=== PATIENT | female | born 1975 | race Caucasian/White ===

== ENCOUNTER 2018-04-04 23:36 | Emergency (ER) | payer OTHER ==
[~2018-04-04] VITALS: Ht 165.1 cm; Wt 59.0 kg
[~2018-04-04 23:36] MED LIST: ALPR0.254 PO; DEXT20CA7 PO; DEXT5TAB27 PO; IBUP800T19 PO; VENL75CA6 PO
[2018-04-04] MEDS ORDERED: IV NORMAL SALINE 1,000ML 1,000 ML IV SCH (23:55)
--- NOTE | 2018-04-05 00:07 | PHYS DOC ---
Past History Past Medical History: Anxiety, Depression, Other Past Surgical History: Other Alcohol Use: None Drug Use: None Adult General Chief Complaint Chief Complaint: HEADACHE HPI HPI Patient is a 42 year old female who presents with complaint of migraine headache. She states that her headache has been present over the past 6-7 hours. Patient states she has history of migraine headaches. Patient states that her headache is bitemporal and states she has associated nausea and photophobia. Patient rates her headache currently is 9 out of 10. Patient states her symptoms are typical from previous headaches but states that she has not had a headache that has lead her to come to the emergency department in several months. Patient states that she has been treated in the emergency department in the past with IV fluids, Benadryl, and an additional medicine but is not sure the name of that medication. Patient denies any associated fevers. Patient has history of partial hysterectomy. Review of Systems Review of Systems Constitutional: Denies fever or chills [] Eyes: Photophobia, denies change in visual acuity, redness, or eye pain [] HENT: Denies nasal congestion or sore throat [] Respiratory: Denies cough or shortness of breath [] Cardiovascular: Denies chest pain or edema[] GI: Nausea, denies abdominal pain, vomiting, bloody stools or diarrhea [] : Denies dysuria or hematuria [] Musculoskeletal: Denies back pain or joint pain [] Integument: Denies rash or skin lesions [] Neurologic: Headache, denies focal weakness or sensory changes [] All other systems were reviewed and found to be within normal limits, except as documented in this note. Current Medications Current Medications Current Medications Medications (Trade) Dose Ordered Sig/Rob Start Time Stop Time Status Last Admin Dose Admin Diphenhydramine HCl (Benadryl) 25 mg 1X ONCE 04/05/18 00:00 04/05/18 00:01 UNV Prochlorperazine Edisylate (Compazine) 10 mg 1X ONCE 04/05/18 00:00 04/05/18 00:01 UNV Sodium Chloride 1,000 ml @ 1,000 mls/hr Q1H 04/04/18 23:55 04/05/18 00:54 UNV Allergies Allergies Allergies Coded Allergies Type Severity Reaction Last Updated Verified Sulfa (Sulfonamide Antibiotics) Allergy Intermediate 12/22/16 Yes codeine Allergy Intermediate 12/22/16 Yes Physical Exam Physical Exam Constitutional: Alert, afebrile, appears in moderate discomfort. [] HENT: Normocephalic, atraumatic, bilateral external ears normal, oropharynx moist, no oral exudates, nose normal. [] Eyes: PERRLA, EOMI, photophobia present, conjunctiva normal, no discharge. [] Neck: Normal range of motion, no tenderness, supple, no stridor. [] Cardiovascular:Heart rate regular rhythm, no murmur [] Lungs & Thorax: Bilateral breath sounds clear to auscultation [] Abdomen: Bowel sounds normal, soft, no tenderness, no masses, no pulsatile masses. [] Skin: Warm, dry, no erythema, no rash. [] Back: No tenderness, no CVA tenderness. [] Extremities: No tenderness, no cyanosis, no clubbing, ROM intact, no edema. [] Neurologic: Alert and oriented X 3, normal motor function, normal sensory function, no focal deficits noted. [] Current Patient Data Lab Results Not performed EKG EKG Not performed[] Radiology/Procedures Radiology/Procedures Not performed[] Course & Med Decision Making Course & Med Decision Making Pertinent Labs and Imaging studies reviewed. (See chart for details) Patient was treated with IV fluids, Toradol, Compazine, and Benadryl. On reevaluation, patient states that her symptoms have significantly improved and she is feeling better at this time. Patient discharged with prescription for Fioricet. Advised follow-up with primary doctor in the next 3-4 days for reevaluation and return to the emergency department for any worsening symptoms. Patient was understanding and agreement with treatment plan. Dragon Disclaimer Dragon Disclaimer This electronic medical record was generated, in whole or in part, using a voice recognition dictation system. Departure Departure: Impression: Primary Impression: Migraine headache Disposition: 01 HOME, SELF-CARE Condition: IMPROVED Referrals: DANIKA APPIAH MD (PCP) Patient Instructions: Migraine Headache Additional Instructions: Follow-up with her primary doctor in the next 3-4 days for reevaluation. Return to the emergency department for any worsening symptoms. Scripts Butalb/Acetaminophen/Caffeine ([id number] 50-325-40) 1 Each Tablet 1-2 EACH PO Q4-6HRS PRN for HEADACHE, #30 TAB Prov: YEN BAEZ MD 04/05/18 Problem Qualifiers Primary Impression: Migraine headache Migraine type: without aura Status migrainosus presence: without status migrainosus Intractability: not intractable Qualified Codes: G43.009 - Migraine without aura, not intractable, without status migrainosus YEN BAEZ MD Apr 05, 2018 00:07
[2018-04-05] MEDS ORDERED: PROCHLORPERAZINE 10 MG/2 ML VIAL. IV ONE (00:15)
[2018-04-05] MEDS ORDERED: diphenhydrAMINE 50 MG/ML VIAL IVP ONE (00:15)
[2018-04-05] MEDS ORDERED: KETOROLAC 30 MG/ML VIAL. IV ONE (01:00)
[2018-04-05] MEDS ORDERED: BUTA1TAB23 PO (01:07)
[2018-04-05 01:12] VITALS: BP 119/66
== END 2018-04-05 01:12 | disposition home or self-care (01) ==
LOC: ER 23:36
DX: G43.009 Migraine without aura, not intractable, without status migrainosus (principal); F41.9 Anxiety disorder, unspecified; F32.9 Major depressive disorder, single episode, unspecified; Z88.2 Allergy status to sulfonamides; Z88.5 Allergy status to narcotic agent
CPT/HCPCS: 96374; 96375; 99284; J0780; J1200; J1885; J7030

== ENCOUNTER 2019-05-08 03:57 | Inpatient (IN) | payer OTHER ==
[~2019-05-08] VITALS: Ht 167.6 cm; Wt 62.9 kg
[~2019-05-08 03:57] MED LIST changes: +BUTA1TAB23 PO
--- NOTE | 2019-05-08 04:43 | PHYS DOC ---
Past History Past Medical History: Anxiety, Migraines, Other (ALEJANDRO BAER DO) Past Surgical History: Cholecystectomy, Other (ALEJANDRO BAER DO) Alcohol Use: Occasionally Drug Use: None (ALEJANDRO BAER DO) Adult General Chief Complaint Chief Complaint: ABDOMINAL PAIN HPI HPI 43-year-old female presents with right lower quadrant abdominal pain. She states that the pain began around 5 PM last night. They have been at the [facility] most of the day. She denies any trauma or falls. As her getting ready to leave, the patient began to have pain in the right lower quadrant. It intensified over the next few hours. She has not really been able to sleep. The pain is now 8 out of 10. She describes it as a sharp cramping. She does not know if she has a fever. She has had chills. Movement and bouncing makes the pain worse. If she lies still it subsides a little bit. Patient has had a partial hysterectomy and cholecystectomy. She still has her appendix. (ALEJANDRO BAER DO) Review of Systems Review of Systems Constitutional: Denies fever or chills [] Eyes: Denies change in visual acuity, redness, or eye pain [] HENT: Denies nasal congestion or sore throat [] Respiratory: Denies cough or shortness of breath [] Cardiovascular: No additional information not addressed in HPI [] GI: Right lower quadrant abdominal pain, nausea. Denies vomiting, bloody stools or diarrhea [] : Denies dysuria or hematuria [] Musculoskeletal: Denies back pain or joint pain [] Integument: Denies rash or skin lesions [] Neurologic: Denies headache, focal weakness or sensory changes [] Endocrine: Denies polyuria or polydipsia [] All other systems were reviewed and found to be within normal limits, except as documented in this note. (ALEJANDRO BAER DO) Current Medications Current Medications Current Medications Medications (Trade) Dose Ordered Sig/Rob Start Time Stop Time Status Last Admin Dose Admin Morphine Sulfate (Morphine 2mg Syringe) 2 mg 1X ONCE 05/08/19 05:00 05/08/19 05:01 Ondansetron HCl (Zofran) 4 mg 1X ONCE 05/08/19 05:00 05/08/19 05:01 Sodium Chloride 1,000 ml @ 1,000 mls/hr 1X ONCE 05/08/19 05:00 05/08/19 05:59 (ALEJANDRO BAER DO) Allergies Allergies Allergies Coded Allergies Type Severity Reaction Last Updated Verified Sulfa (Sulfonamide Antibiotics) Allergy Intermediate 12/22/16 Yes codeine Allergy Intermediate 12/22/16 Yes (ALEJANDRO BAER DO) Physical Exam Physical Exam Constitutional: Well developed, well nourished, no acute distress, non-toxic appearance. [] HENT: Normocephalic, atraumatic, bilateral external ears normal, oropharynx moist, no oral exudates, nose normal. [] Eyes: PERRLA, EOMI, conjunctiva normal, no discharge. [] Neck: Normal range of motion, no tenderness, supple, no stridor. [] Cardiovascular:Heart rate regular rhythm, no murmur [] Lungs & Thorax: Bilateral breath sounds clear to auscultation [] Abdomen: Bowel sounds normal, soft, lateral, right sided abdominal pain, no masses, no pulsatile masses. [] Skin: Warm, dry, no erythema, no rash. [] Back: No tenderness, right CVA tenderness. [] Extremities: No tenderness, no cyanosis, no clubbing, ROM intact, no edema. [] Neurologic: Alert and oriented X 3, normal motor function, normal sensory function, no focal deficits noted. [] Psychologic: Affect normal, judgement normal, mood normal. [] (ALEJANDRO BAER DO) EKG EKG [] (ALEJANDRO BAER DO) Radiology/Procedures Radiology/Procedures [] (ALEJANDRO BAER DO) Radiology/[place] [address] IMAGING REPORT Signed PATIENT: REGGIE YUSUF ACCOUNT: [id number] : 1975 LOCATION: ER AGE: 43 SEX: F EXAM STATUS: REG ER ORD. PHYSICIAN: ALEJANDRO BAER DO REASON: Severe right flank pain. Hx: Cholecystectomy PROCEDURE: CT ABDOMEN PELVIS WO CONTRAST INDICATION: Right flank pain COMPARISON: None. TECHNIQUE: Axial CT images obtained through the abdomen and pelvis without contrast. Limited assessment of solid organ structures and vasculature secondary to lack of intravenous contrast.. One or more of the following individualized dose reduction techniques were utilized for this examination: 1. Automated exposure control; 2. Adjustment of the mA and/or kV according to patient size; 3. Use of iterative reconstruction technique. FINDINGS: Cystic changes at lung bases. Abdominal aorta is not aneurysmal. Suspected fat-containing inguinal hernias. Scattered prominent lymph nodes within the groin. No intrahepatic bile duct dilation. The liver is enlarged with postcholecystectomy changes. Poor evaluation of pancreas without contrast. Spleen mildly prominent. Nonobstructive left renal stones. No left-sided hydronephrosis. Urinary bladder partially distended. Mild prominence of the right extrarenal pelvis. Definite radiopaque obstructive ureter stone is not seen. Difficult to follow the ureter through a portion of the pelvis secondary to lack of adjacent fat. Colonic diverticulosis. The appendix is partially visualized without definite adjacent inflammatory changes. Moderate stool in the proximal colon. Left-sided colon is not very distended with wall appearing prominent. Scattered prominent loops of small bowel identified with fluid within. No high-grade transition point to suggest obstruction. The bowel within the left-sided the abdomen has a mildly prominent wall. Degenerative changes the spine including multiple disc protrusions with one of the largest 1's at L3-4. IMPRESSION: 1. Mild prominence of the right extrarenal pelvis with some prominence of the urothelium. Would correlate with symptoms in the region to ensure that there is not a pathologic cause such as pyelitis or recently passed ureter stone. 2. Questionable region of wall thickening at left side of the colon as well as loop of small bowel at left side of the abdomen. These are questionable findings and can be from lack of distention but would correlate with symptoms to ensure that there is not an enteritis or colitis. 3. Nonobstructive left renal stones. Electronically signed by: Black Dalton MD (05/08/2019 6:01 AM) [facility] DICTATED AND SIGNED BY: BLACK DALTON MD DATE: 05/08/19 0601 CC: ALEJANDRO BAER DO; EMELY DENNY (YEN REZA MD) Course & Med Decision Making Course & Med Decision Making Pertinent Labs and Imaging studies reviewed. (See chart for details) The patient has a slightly elevated white count. Her urinalysis is significant for urinary tract infection. I will treat her with 1 g of Rocephin. The rest of her workup is still pending. I'm signing the patient out to Dr. Reza at 0600 and he will determine the patient's final disposition and treatment plan. [] (ALEJANDRO BAER DO) Course & Med Decision Making Serum care of patient at [address] Baer. Receive results of CT scan. Appears patient has findings concerning for acute pyelonephritis. Given the urine results this would be consistent. Patient continues to have severe right- sided pain and states that she is unable to move and her current condition because of her pain. Given severity of symptoms and the presence of acute pyelonephritis, it is appropriate for admission for further treatment and pain control. Spoke with Dr. Mckinney who accepted care of patient in hospital. (YEN REZA MD) Dragon Disclaimer Dragon Disclaimer This electronic medical record was generated, in whole or in part, using a voice recognition dictation system. (ALEJANDRO BAER DO) Departure Departure: Impression: Primary Impression: Acute pyelonephritis Additional Impression: Intractable pain Disposition: ADMITTED INPATIENT Admitting Physician: Garrison Mckinney (YEN REZA MD) Condition: GUARDED Referrals: DANIKA APPIAH MD (PCP) Problem Qualifiers ALEJANDRO BAER DO May 08, 2019 04:43 YEN REZA MD May 08, 2019 06:26
[2019-05-08] MEDS ORDERED: IV NORMAL SALINE 1,000ML 1,000 ML IV ONE (05:00)
[2019-05-08] MEDS ORDERED: MORPHINE SULFATE 2 MG/ML DISP.SYRIN. IV ONE (05:00)
[2019-05-08] MEDS ORDERED: ONDANSETRON PF 4 MG/2 ML VIAL. IV ONE (05:00)
[2019-05-08 05:08] LABS: BACTERIA,URINE MANY /HPF (0-FEW); BILIRUBIN,URINE NEG (NEG); CLARITY,URINE CLOUDY; COLOR,URINE YELLOW; GLUCOSE,URINE NEG (NEG); NITRITE,URINE POS (NEG); RBC,URINE >40 /HPF (0-2); SQUAMOUS EPITHELIAL CELL,UR FEW /LPF; UROBILINOGEN,URINE 0.2 mg/dL (0.2 mg/dL); WBC,URINE >40 /HPF (0-4)
[2019-05-08 05:44] LABS: BASO # 0.1 x10^3/uL (0.0-0.2); BASO % 1 % (0-3); EOS # 0.1 x10^3/uL (0.0-0.7); EOS % 1 % (0-3); HEMOGLOBIN 14.9 g/dL (12.0-15.5); LYMPH # 1.3 x10^3/uL (1.0-4.8); LYMPH % 10 % (24-48); MEAN CORPUSCULAR HEMOGLOBIN 32 pg (25-35); MEAN CORPUSCULAR HGB CONC 34 g/dL (31-37); MEAN CORPUSCULAR VOLUME 94 fL (79-100); MONO # 0.8 x10^3/uL (0.0-1.1); MONO % 6 % (0-9); NEUT % 83 % (31-73); PLATELET COUNT 167 x10^3/uL (140-400); RED BLOOD COUNT 4.68 x10^6/uL (3.50-5.40); RED CELL DISTRIBUTION WIDTH 13.7 % (11.5-14.5); WHITE BLOOD COUNT 13.2 x10^3/uL (4.0-11.0)
[2019-05-08 05:55] LABS: ALBUMIN/GLOBULIN RATIO 1.2 (1.0-1.7); CALCIUM 9.5 mg/dL (8.5-10.1); CREATININE 0.8 mg/dL (0.6-1.0); GFR 77.9; POTASSIUM 3.9 mmol/L (3.5-5.1); TOTAL BILIRUBIN 0.2 mg/dL (0.2-1.0); TOTAL PROTEIN 7.4 g/dL (6.4-8.2)
--- NOTE | 2019-05-08 06:04 | RAD ---
INDICATION: Right flank pain COMPARISON: None. TECHNIQUE: Axial CT images obtained through the abdomen and pelvis without contrast. Limited assessment of solid organ structures and vasculature secondary to lack of intravenous contrast.. One or more of the following individualized dose reduction techniques were utilized for this examination: 1. Automated exposure control; 2. Adjustment of the mA and/or kV according to patient size; 3. Use of iterative reconstruction technique. FINDINGS: Cystic changes at lung bases. Abdominal aorta is not aneurysmal. Suspected fat-containing inguinal hernias. Scattered prominent lymph nodes within the groin. No intrahepatic bile duct dilation. The liver is enlarged with postcholecystectomy changes. Poor evaluation of pancreas without contrast. Spleen mildly prominent. Nonobstructive left renal stones. No left-sided hydronephrosis. Urinary bladder partially distended. Mild prominence of the right extrarenal pelvis. Definite radiopaque obstructive ureter stone is not seen. Difficult to follow the ureter through a portion of the pelvis secondary to lack of adjacent fat. Colonic diverticulosis. The appendix is partially visualized without definite adjacent inflammatory changes. Moderate stool in the proximal colon. Left-sided colon is not very distended with wall appearing prominent. Scattered prominent loops of small bowel identified with fluid within. No high-grade transition point to suggest obstruction. The bowel within the left-sided the abdomen has a mildly prominent wall. Degenerative changes the spine including multiple disc protrusions with one of the largest 1's at L3-4. IMPRESSION: 1. Mild prominence of the right extrarenal pelvis with some prominence of the urothelium. Would correlate with symptoms in the region to ensure that there is not a pathologic cause such as pyelitis or recently passed ureter stone. 2. Questionable region of wall thickening at left side of the colon as well as loop of small bowel at left side of the abdomen. These are questionable findings and can be from lack of distention but would correlate with symptoms to ensure that there is not an enteritis or colitis. 3. Nonobstructive left renal stones. Electronically signed by: Subhash Lehman MD (05/08/2019 6:01 AM) [facility]
[2019-05-08] MEDS ORDERED: KETOROLAC 30 MG/ML VIAL. ONE (06:21)
[2019-05-08] MEDS ORDERED: IV NORMAL SALINE 50ML 50 ML ONE (06:21)
[2019-05-08] MEDS ORDERED: cefTRIAXone SODIUM 1 GM VIAL ONE (06:21)
[2019-05-08] MEDS ORDERED: ACETAMINOPHEN 325 MG TABLET PO PRN (06:30)
[2019-05-08] MEDS ORDERED: MORPHINE SULFATE 4 MG/ML DISP.SYRIN. IV PRN (06:30)
[2019-05-08] MEDS ORDERED: ONDANSETRON PF 4 MG/2 ML VIAL. IV PRN (06:30)
[2019-05-08] MEDS ORDERED: KETOROLAC 30 MG/ML VIAL. IV ONE (07:00)
[2019-05-08] MEDS: IV NORMAL SALINE 1,000ML 1,000 ML IV SCH ×3 (07:11→22:08)
[2019-05-08 08:20] VITALS: BP 108/68
[2019-05-08] MEDS ORDERED: VENL75TA PO (08:51)
[2019-05-08] MEDS ORDERED: DEXT20CA PO (08:51)
[2019-05-08] MEDS ORDERED: DEXT10TA38 PO (08:51)
[2019-05-08 12:10] VITALS: BP 111/60
[2019-05-08 14:59] VITALS: BP 105/67
[2019-05-08] MEDS ORDERED: KETOROLAC 30 MG/ML VIAL. IV PRN (16:15)
--- NOTE | 2019-05-08 18:07 | HP ---
ADMIT DATE: 05/08/2019 HISTORY OF PRESENT ILLNESS: The patient is a 43-year-old female patient who basically came to the Emergency Room complaining of pain, mostly started in the right flank area, started yesterday at 5:00 p.m. They have been at the [employer] [facility] most of the day. She denied any trauma or falls. As they were getting ready to leave, the patient began to have pain in her right lower quadrant. It intensified over the next few hours. She has not really been able to sleep. By the time she arrived to the Emergency Room, the pain was 8/10. She described it as sharp, cramping; does not know if she has any fever; had had some chills movement and bouncing makes the pain worse. She lies still, it subsides a little bit. She denied any dysuria, frequency or hematuria. She was evaluated in the Emergency Room and her lab work showed leukocytosis and has had a CT scan of the abdomen and pelvis, which basically showed mild prominence of the right extrarenal pelvis with some prominence of the urothelium, would correlate with symptoms in the region to make ensure that there is not a pathologic cause such as pyelitis and recent passed ureteric stone, questionable region of wall thickening of the left side of the colon as well as loop of the small bowel at the left side of the abdomen, these are questionable finding that can be from lack of distention, but would correlate with symptoms to ensure that there is not an enteritis or colitis. She has nonobstructive left renal stone. The patient was admitted with acute right side pyelonephritis, started on IV Rocephin and given morphine without improvement and at 1.12, she received Toradol and her pain has largely subsided. The CT scan showed no colonic diverticulosis, appendix is partially visualized without definite just adjacent inflammatory changes, moderate stool in the proximal colon. PAST MEDICAL HISTORY: Significant for history of renal stones before, migraine headache, generalized osteoarthritis, attention deficit hyperactivity syndrome and anxiety as well as bronchial asthma. PAST SURGICAL HISTORY: Significant for total partial hysterectomy, cholecystectomy. ALLERGIES: SULFA DRUGS AND CODEINE. MEDICATIONS: She is currently on following medications: She is on venlafaxine 75 mg p.o. daily, dextroamphetamine/amphetamine 20 mg 1 capsule p.o. daily and dextroamphetamine/methamphetamine 10 mg daily. FAMILY HISTORY: She has one brother and one sister, both older and apparently healthy. Her father is still alive at the age of 78, has rheumatoid arthritis and soft tissue sarcoma. Mother is alive at the age of 79 is known to have senile macular degeneration. SOCIAL HISTORY: She is currently living with her significant other. She has 3 children. She smoked half a pack a day, drinks alcohol occasionally, does not use any drugs. 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 REVIEW OF SYSTEMS: As per history of present illness. PHYSICAL EXAMINATION: GENERAL: On arrival to the Emergency Room, she looked well and was clearly in no apparent respiratory distress. No pallor, jaundice, cyanosis, or thyromegaly. No jugular venous distension. No limb edema. VITAL SIGNS: His heart rate was 76, blood pressure 131/71, temperature was 98.3, respiratory rate 20, and oxygen saturation was 100% on room air. HEAD, EYES, EARS, NOSE AND THROAT: Normocephalic, atraumatic. NECK: Supple. HEART: Showed normal first and second heart sounds. No gallop, rub or murmur. CHEST: Clear to auscultation. No crepitation or rhonchi. ABDOMEN: Showed right-sided abdominal pain, but no guarding or rigidity. No organomegaly. No pulsatile masses. Bowel sounds are normal. NEUROLOGIC: She was awake, alert, responding appropriately. LABORATORY DATA: Showed a white cell count of 13,200, hemoglobin 14.9, hematocrit 44, MCV 94 and platelet count of 167,000 with normal manual differential. Her chemistry showed a serum sodium 140, potassium 3.9, chloride 103, bicarbonate 25, anion gap of 12, BUN 12, creatinine 0.8, estimated GFR was 78 mL per minute. Her glucose was 99. Calcium was 9.5. Total bilirubin, AST, ALT, alkaline phosphatase were normal. Total protein was 7.4, albumin 4. Lipase was 61. Urinalysis showed the urine was yellow, cloudy with a pH of 7.5, specific gravity of 1.020. There was large amount of protein; negative for glucose, ketones; large amount of blood; positive for nitrite; more than 40 wbc's, and many bacteria. The patient's CT scan confirmed that she has basically mild prominence of the right extrarenal pelvis with some prominence of the urothelium, would correlate with symptoms in the region to ensure that there is not a pathologic cause such as pyelitis and recently passed ureteric stones. The patient was started on IV fluid and after obtaining her urine, she was started on ceftriaxone, IV morphine, IV fluid and responded very well to Toradol. We will continue with IV fluid, IV Toradol as well as IV ceftriaxone. JAMES SHAW MD DR: FORREST/dhara JOB#: [id number] / [id number]
[2019-05-08 20:01] VITALS: BP 122/72
[2019-05-08] MEDS ORDERED: VENLAFAXINE XR 37.5 MG CAP.ER.24H. PO SCH (22:00)
[2019-05-08 22:56] VITALS: BP 108/64
[2019-05-09] MEDS: IV NORMAL SALINE 1,000ML 1,000 ML IV SCH (04:19)
[2019-05-09 05:50] VITALS: BP 109/61
[2019-05-09 06:53] LABS: HEMATOCRIT 37.4 % (36.0-47.0); HEMOGLOBIN 12.4 g/dL (12.0-15.5); RED BLOOD COUNT 3.93 x10^6/uL (3.50-5.40); RED CELL DISTRIBUTION WIDTH 13.6 % (11.5-14.5); WHITE BLOOD COUNT 4.9 x10^3/uL (4.0-11.0)
[2019-05-09 07:01] LABS: ALBUMIN 2.8 g/dL (3.4-5.0); ALBUMIN/GLOBULIN RATIO 1.1 (1.0-1.7); CALCIUM 8.2 mg/dL (8.5-10.1); CREATININE 0.7 mg/dL (0.6-1.0); GFR 90.9; POTASSIUM 4.4 mmol/L (3.5-5.1); TOTAL BILIRUBIN 0.2 mg/dL (0.2-1.0); TOTAL PROTEIN 5.4 g/dL (6.4-8.2)
[2019-05-09] MEDS ORDERED: AMPHETAMINE PO SCH ×2 (09:00→16:00)
[2019-05-09] MEDS ORDERED: DEXTROAMPHETAMINE PO SCH ×2 (09:00→16:00)
[2019-05-09 10:39] VITALS: BP 118/70
[2019-05-09] MEDS ORDERED: CEFD300C PO (12:58)
[2019-05-09] MEDS ORDERED: LACTOBACILLUS RHAMNOSUS GG 1 CAPSULE. PO SCH (21:00)
--- NOTE | 2019-05-09 23:59 | DS ---
DATE OF DISCHARGE: 05/09/2019 The patient is a 43-year-old female patient who came to the Emergency Room complaining of pain, mostly in the right flank area, radiating down to the right groin area. By the time she arrived to the Emergency Room, the pain was 8/10, described as sharp, cramping, does not know if she has any fever, has had some chills, movement and balancing makes the pain worse and when she lies, still the pain subsides a little bit. Denied any dysuria, frequency, hematuria. She was evaluated in the Emergency Room, was found to have leukocytosis and has had a CT scan of the abdomen and pelvis, which basically showed mild prominence of the right extrarenal pelvis with some prominence of the urothelium with correlate of symptoms such as ____ ureteric stone. She was admitted with the above diagnosis of acute pyelonephritis, started on IV antibiotic. Morphine was not effective, but Toradol was very effective in controlling her pain and was started on IV ceftriaxone. When I saw her this afternoon, she was resting slightly propped up in bed, in no apparent respiratory distress, denied any pain. Denied any dysuria, frequency, hematuria. Denied any chills, rigors, fever. PHYSICAL EXAMINATION: GENERAL: When I examined her, she looked pale, but no jaundiced, cyanosed or thyromegaly. No jugular venous distention. No limb edema. VITAL SIGNS: Her heart rate was 73, blood pressure was 118/70, temperature was 97.1, respiratory rate was 18 and oxygen saturation was 98%. HEENT: Examination of the head, eyes, ears, nose and throat showed normocephalic, atraumatic. NECK: Supple. HEART: Showed normal first and second heart sounds with no gallop, rub or murmur. CHEST: Clear to auscultation. No crepitation or rhonchi. ABDOMEN: Distended, soft, tender. No guarding or rigidity. No organomegaly. All hernial orifice intact. Bowel sounds normal. NEUROLOGIC: She was awake, alert, responding appropriately. All cranial nerves intact. She moves extremities without difficulty. She ambulates without assistance or assistive devices. LABORATORY DATA: Her lab work this morning showed a white cell count is down to 4900, hemoglobin 12, hematocrit 37, MCV 95, and platelet count of 115,000. Her chemistry this morning showed a serum sodium 142, potassium 4.4, chloride 110, bicarbonate 26, anion gap of 6, BUN 9, creatinine 0.7, estimated GFR was 90 mL per minute. Her glucose was 88, calcium was 8.2. Total bilirubin, AST, ALT, alkaline phosphatase were normal. Total protein was 5.4 and albumin was 2.8. ASSESSMENT: 1. Acute pyelonephritis, resolving. The patient is responding very well. The patient will be discharged home to complete course of antibiotic in the form of cefdinir 300 mg twice a day for 7 days. 2. Nephrolithiasis. 3. Bronchial asthma. 4. Migraine headache. 5. Generalized osteoarthritis. 6. Attention deficit hyperactivity syndrome. JAMES SHAW MD DR: FORREST/dhara JOB#: [id number] / [id number]
== END 2019-05-09 14:00 | disposition home or self-care (01) | DRG 690 ==
LOC: ER 03:57 → 1 SOUTH 08:08
PROVIDERS: ADMIT Internal Medicine; ATTEND Internal Medicine
DX: N10 Acute pyelonephritis (principal); N20.0 Calculus of kidney; F90.9 Attention-deficit hyperactivity disorder, unspecified type; G43.909 Migraine, unspecified, not intractable, without status migrainosus; J45.909 Unspecified asthma, uncomplicated; M15.9 Polyosteoarthritis, unspecified; F41.9 Anxiety disorder, unspecified; Z87.442 Personal history of urinary calculi; Z87.891 Personal history of nicotine dependence; Z90.49 Acquired absence of other specified parts of digestive tract; Z90.711 Acquired absence of uterus with remaining cervical stump; Z79.899 Other long term (current) drug therapy; Z88.2 Allergy status to sulfonamides; Z88.8 Allergy status to other drugs, medicaments and biological substances
CPT/HCPCS: 36415; 74176; 80053; 81001; 83690; 85025; 85027; 87086; 96361; 96365; 96375; J0696; J1885; J2270; J2405; 99285-25; J7030